=== PATIENT | male | born 1945 | race Caucasian/White ===

== ENCOUNTER → 2017-04-25 | Day surgery (SDC) | payer OTHER ==
[~2017-04-25] VITALS: Ht 180.3 cm; Wt 70.3 kg
[~2017-04-25] MED LIST: 0.9% Sodium Chloride 1,000 ML IV PRN; CHOL10008 PO; LEVO50CA2 PO; Lactated Ringer's 1,000 ML IV ONE; PRAZ1CAP2 PO; Sodium Chloride LOK Flush 10 mL Syringe IV PRN; fentaNYL-PF 50 mCg/mL 2 mL Inj IVPUSH PRN
[2017-04-25 08:02] VITALS: BP 157/86; PULSE 76; RESP 14; O2SAT 100
[2017-04-25 08:53] VITALS: BP 99/56; PULSE 60; RESP 14; O2SAT 94
--- NOTE | 2017-04-25 08:54 | PCM.ENDCOL ---
Colonoscopy Date of Service: Apr 25, 2017 Physician Sherman Dale MD Pre Procedure Diagnosis: Screening history of polyp Post Procedure Dx & Findings: Polyp hemorrhoids diverticula Procedure Colonoscopy PROCEDURE IN DETAIL: Prep adequate Withdrawal time 11 minutes After unremarkable rectal examination the Olympus video colonoscope was inserted patient's anal canal and was advanced to cecum. Landmarks were identified including the ileocecal valve and appendiceal orifice. Scope was withdrawn systematically. Visualized colonic mucosa showed healthy shiny mucosa with normal healthy-appearing vasculature. In the sigmoid colon there was a 1 mm polyp was removed completely using cold forceps. Narrow band showed possible adenomatous polyp. In the sigmoid colon a few small diverticuli. In the rectum retroflexion was done which showed hemorrhoids. Anal canal was inspected carefully on the way out and hemorrhoids noted. Impression History of polyp Polyp 1 status post complete removal Diverticuli Hemorrhoids Recommendation Repeat colonoscopy 5 years Diverticular diet Presedation Assessment Risks and Benefits Informed consent was obtained from the patient after all risks and benefits including but not limited to drug reaction, infection, pain, bleeding, perforation, as well as alternatives were discussed. Patient monitoring Continuous pulse oximetry, cardiac monitoring, blood pressure monitoring, IV access, and oxygen at 2L per nasal cannula. Periprocedural Fentanyl: Fentanyl 125mcg Incrementally Midazolam: Midazolam 6mg Incrementally Complications There were no periprocedural complications identified. Post Procedure Plan Post Procedure Recommendations 1. Restrict activities today. 2. Resume normal activities in the morning. 3. Resume medications. 4. Patient informed of normal post procedure side effects as bloating, drowsiness, blood streaking in the stool. 5. average risk CRCS. If colon polyps come back as: -Hyperplastic- can repeat colonoscopy in 10 years -Tubular adenoma- repeat colonoscopy in 5 years -Tubulovillous/villous adenoma- repeat colonoscopy in 3 years -If any dysplasia- return to clinic as soon as possible 6. Please don't hesitate to call me with any questions. Sherman Dale MD Apr 25, 2017 08:53
[2017-04-25 09:03] VITALS: BP 90/54; PULSE 60; RESP 14; O2SAT 92
[2017-04-25 09:11] VITALS: BP 121/72; PULSE 69; RESP 14; O2SAT 99
--- NOTE | 2017-04-27 15:10 | PATH ---
SURGICAL PATHOLOGY Attending Physician:Sherman Dale M.D. CASE STATUS: Signed Out PATIENT NAME: OKSANA FELIPE PID: [id number] : 1945 DATE COLLECTED:04/25/2017 21:19 SPECIMEN: Colon, Polyp CLINICAL HISTORY: 1). SIGMOID POLYP FINAL DIAGNOSIS: Sigmoid Colon, Polyp, Biopsy: Superficial portion of colorectal mucosa with no diagnostic abnormality. ICD10: K63.5 NOTE: Additional levels through the block are non-contributory. GROSS DESCRIPTION: The specimen is received in one formalin filled container labeled with the patient's name, sublabeled "sigmoid polyp" and consists of a 0.2 x 0.2 x 0.1 CM portion of tissue which is entirely submitted in one cassette. 04/25/2017DC ICD-9 CODES: CPT CODES: 1: 88686 Electronically Signed Out Mary Isaacs MD Located Within [facility] Pathology [facility] [address], [place] [address] Technical component performed at [facility], [facility] [address], [address]
== END | disposition home or self-care (01) ==
LOC: END 00:30
PROVIDERS: ATTEND Internal Medicine
DX: Z12.11 Encounter for screening for malignant neoplasm of colon (principal); K63.5 Polyp of colon; K57.30 Diverticulosis of large intestine without perforation or abscess without bleeding; K64.8 Other hemorrhoids; Z79.899 Other long term (current) drug therapy
CPT/HCPCS: 45380; G0500; J2250; J3010; J7030